=== PATIENT | female | born 1945 | race Caucasian/White ===

== ENCOUNTER → 2022-03-23 12:40 | Outpatient (CLI) | payer OTHER, SELFPAY ==
[2022-03-23 14:44] LABS: COVID19 -Nasal RAPID Negative (Negative)
--- NOTE | 2022-03-24 20:20 | DI.NM.S_ITS ---
DATE OF SERVICE: 03/23/2022 PROCEDURE: Pharmacological perfusion study. INDICATION: Chest pain with underlying hypertension, patient is prediabetic. RADIOPHARMACEUTICAL: 26.2 millicurie technetium-99m Myoview IV was injected at stress and 25.7 millicurie technetium-99m Myoview IV was injected at rest. CARDIAC STRESS: The patient initially attempted exercise stress test. She walked on Patrick protocol for 7 minutes, 46 seconds. However, it was not a complete Patrick protocol. It had to be switched manually after 2 minutes and 40 seconds, as the patient has shortness of breath and difficulty keeping up with treadmill. She achieved maximum heart rate of 109, which was 75 percent. Target heart rate was not met, hence exercise stress test was converted to intravenous Lexiscan perfusion study. The patient was given IV Lexiscan, as per protocol. During exercise, there were no convincing ischemic EKG changes seen. Baseline rhythm was sinus. Blood pressure was 134/82 at rest and peak blood pressure 160/88. During Lexiscan, the patient had 5/10 left-sided chest pain, right jaw, shoulder pain, back pain, headache and stomachache. She was given intravenous aminophylline 100 mg, which improved her symptoms significantly. During Lexiscan, there were no convincing ischemic EKG changes or significant arrhythmias. RAW DATA: Significant breast shadow seen. GATED STUDY: Stress LV ejection fraction 94 percent without any obvious wall motion abnormalities. Resting end-diastolic volume 67 mL. TID ratio 1.0, which is within normal limits. Lung/heart ratio 0.41, which is within normal limits. MYOCARDIAL PERFUSION SCAN: Stress supine, resting supine and stress prone images were compared to each other. There is a normal myocardial perfusion. CONCLUSION: This is a normal myocardial perfusion study. Hyperdynamic left ventricle. Poor exercise tolerance. During exercise, the patient has shortness of breath. No convincing ischemic EKG changes. As far as perfusion scan is concerned, this is a low-risk myocardial perfusion scan. Consider a 2D echo to make sure there is no diastolic dysfunction or other structural heart disease, as well as well assess noncardiac etiology of shortness of breath. Gia Randall - Rayne/manish doc#: [id number]/job#: [id number] dd: 03/24/2022 17:11:00 dt: 03/24/2022 19:18:00 DICTATING MD/COPIES TO: Ashley Balbuena MD COPIES MNE: JULIO;
== END ==
PROVIDERS: PCP Physician Assistant Medical; Referring Provider Physician Assistant Medical; Visit Provider Physician Assistant Medical
DX: R07.9 Chest pain, unspecified (principal); R73.03 Prediabetes; I10 Essential (primary) hypertension; Z20.822 Contact with and (suspected) exposure to COVID-19
CPT/HCPCS: 78452; 87635; 93017; A9502; J2785